=== PATIENT | male | born 1950 | race Two or more races ===

== ENCOUNTER 2018-09-05 06:07 | Day surgery (SDC) | payer MEDICARE, OTHER ==
[~2018-09-05] VITALS: Ht 154.9 cm; Wt 65.8 kg
[2018-09-05 06:35] VITALS: BP 154/93
[2018-09-05 10:06] VITALS: BP 111/85
== END 2018-09-05 10:35 | disposition home or self-care (01) ==
LOC: DS 06:07 → OR 07:30 → GI 07:30 → DS 10:35
PROVIDERS: Internal Medicine Gastroenterology
PROC: 0DB38ZX Excision of Lower Esophagus, Via Natural or Artificial Opening Endoscopic, Diagnostic (ICD-10-PCS; principal; 2018-09-05 07:30)
PROC: 0DB68ZX Excision of Stomach, Via Natural or Artificial Opening Endoscopic, Diagnostic (ICD-10-PCS; 2018-09-05 07:30)
DX: K21.0 Gastro-esophageal reflux disease with esophagitis (principal); K22.10 Ulcer of esophagus without bleeding; K44.9 Diaphragmatic hernia without obstruction or gangrene
CPT/HCPCS: 43235; 88344; J1200; J1610; J2250; J2310; J3010; J3490